=== PATIENT | female | born 1960 | race Caucasian/White ===

== ENCOUNTER 2016-12-24 09:38 | Emergency (ER) | payer OTHER ==
[~2016-12-24 09:38] MED LIST: ALTA2.5 PO; ASA5GR PO; ASAB PO; ASABAYER PO; BENTYL20 PO; COZ25 PO; DENIES HOME MEDS; IMDUR30 PO; LIBRAX PO; LOP25 PO; MUCINEX600 MG PO; NICODERM C21 MG/241 TOP; OCEAN NAS; P20 PO; PLAVIX PO; PRAVACHOL40 MG PO; PROVHFA INH; SPIRIVA INH; SYMBICORT 160/41 INH INH; TESS PO; TYLENOL PM PO; X5 PO; Z-PAK PO
[2016-12-24 10:59] LABS: BASOPHILS 0.2 %; BASOPHILS ABSOLUTE 0.02 10/3/uL (0.0-0.16); EOSINOPHILS 2.7 %; EOSINOPHILS ABSOLUTE 0.25 10/3/uL (0.0-0.53); ER CBC TAT 0 Hrs 03 Mins; HEMATOCRIT 37.8 % (36.0-48.0); HEMOGLOBIN 12.4 g/dL (12.0-16.0); IMMATURE GRANULOCYTES 0.2 %; IMMATURE GRANULOCYTES ABSOLUTE 0.02 10/3/uL (0.0-0.11); LYMPHOCYTES 32.4 %; LYMPHOCYTES ABSOLUTE 2.99 10/3/uL (0.67-4.30); MEAN CORPUS HGB CONC 32.8 g/dL (32.0-36.0); MEAN CORPUSCULAR HEMOGLOB 28.6 pg (26.0-34.0); MEAN CORPUSCULAR VOLUME 87.1 fL (80-100); MEAN PLATELET VOLUME 9.8 fL (9.2-13.0); MONOCYTES 6.9 %; MONOCYTES ABSOLUTE 0.64 10/3/uL (0.21-1.20); NEUTROPHILS 57.6 %; PLATELET COUNT 279 10/3/uL (150-400); RBC DISTRIBUTION WIDTH 13.9 % (12.0-16.0); RED CELL COUNT 4.34 10/6/uL (4.0-5.6); WHITE BLOOD CELLS 9.2 10/3/uL (4.5-10.5)
[2016-12-24 11:00] LABS: MANUAL DIFF NO %
[2016-12-24 11:07] LABS: PARTIAL THROMBO TIME 24.8 SEC (22.5-37.2); PROTIME (NOT ORD) 12.6 SEC (12.0-14.5)
[2016-12-24 11:13] LABS: ALBUMIN 3.7 G/DL (3.5-5.0); ALKALINE PHOSPHATASE 85 U/L (45-117); CALCIUM, SERUM 9.7 MG/DL (8.5-10.4); CHLORIDE, SERUM 109 MMOL/L (96-112); CO2 (CARBON DIOXIDE) 26 MMOL/L (24-34); CREATININE 0.96 MG/DL (0.55-1.02); GFR AFRICAN AMERICAN 77 ML/MIN (>=60); GFR NON AFRICAN AMERICAN 66 ML/MIN (>=60); GLOBULIN 3.8 G/DL (2.5-4.1); GLUCOSE, SERUM 115 MG/DL (60-99); SGOT(AST) 10 U/L (5-40); SGPT(ALT) 20 U/L (5-65); SODIUM, SERUM 142 MMOL/L (135-148); TOTAL BILIRUBIN 0.2 MG/DL (0-1.2); TOTAL PROTEIN 7.5 G/DL (6.0-8.5)
[2016-12-24 11:14] LABS: BUN (BLOOD UREA NITROGEN) 19 MG/DL (6-23)
[2016-12-24] MEDS ORDERED: PLAVIX PO (11:17)
[2016-12-24] MEDS ORDERED: PROVHFA INH (11:17)
[2016-12-24] MEDS ORDERED: SYMBICORT 160/41 INH INH (11:17)
[2016-12-24] MEDS ORDERED: ALTA5 PO (11:18)
[2016-12-24] MEDS ORDERED: NITROSTAT0.4 MG SL (11:18)
[2016-12-24] MEDS ORDERED: TYLENOL PM PO (11:19)
[2016-12-24] MEDS ORDERED: ASAB PO (11:19)
[2016-12-24] MEDS ORDERED: OTC NASAL SPRAY NAS (11:20)
[2016-12-24] MEDS ORDERED: PREV15 PO (11:21)
== END 2016-12-24 12:59 | disposition home or self-care (01) ==
LOC: ER 09:38
PROVIDERS: Emergency Medicine
DX: R10.84 Generalized abdominal pain (principal); I10 Essential (primary) hypertension; J44.9 Chronic obstructive pulmonary disease, unspecified; F17.200 Nicotine dependence, unspecified, uncomplicated; K21.9 Gastro-esophageal reflux disease without esophagitis; E11.9 Type 2 diabetes mellitus without complications; Z86.73 Personal history of transient ischemic attack (TIA), and cerebral infarction without residual deficits; Z90.49 Acquired absence of other specified parts of digestive tract; Z90.710 Acquired absence of both cervix and uterus; Z88.6 Allergy status to analgesic agent; Z88.0 Allergy status to penicillin; Z88.5 Allergy status to narcotic agent; Z88.8 Allergy status to other drugs, medicaments and biological substances; Z79.82 Long term (current) use of aspirin; Z79.899 Other long term (current) drug therapy
CPT/HCPCS: 36415; 80053; 85025; 85610; 85730; 86850; 86900; 86901; 96374; 99284; C9113